=== PATIENT | male | born 1990 | race Caucasian/White ===

== ENCOUNTER 2017-06-21 22:19 | Emergency (ER) | payer SELFPAY ==
--- NOTE | 2017-06-22 01:48 | ER Document Report ---
HPI - HPI Patient complains to provider of: neck swelling Pain Level: Denies Context: Patient is a 27-year-old male comes emergency department for chief complaint of a swollen area underneath his left jaw bone, he states the area has been there for over a year, he states that it seems like it is slowly getting a little bit bigger. He denies tenderness to the area, he denies drainage, denies fever. Denies difficulty swallowing or breathing but states he is noticing it more now just in general. He states he had CAT scan performed with contrast and [place] a few months ago, states he is not sure what they told him it was but told him to follow-up with ENT. He states he thinks it is a sebaceous cyst although he is not sure if they told him that or if he googled it. He smokes, he takes Suboxone, he denies injecting anything into the area. He denies any other medical history. Past Medical History - General Information source: Patient - Social History Smoking Status: Current Every Day Smoker Smoking Education Provided: Yes - <3 min Frequency of alcohol use: None Drug Abuse: None Lives with: Alone Family History: Reviewed & Not Pertinent - Medical History Medical History: Negative Surgical Hx: Negative - Immunizations Immunizations up to date: Yes Hx Diphtheria, Pertussis, Tetanus Vaccination: Yes Vertical Provider Document - CONSTITUTIONAL General Appearance: WD/WN, No Apparent Distress - HEENT HEENT: Atraumatic, Normocephalic. negative: Normal ENT Exam - There is a large circular solid slightly mobile enlargement just under the left mandible in the mid mandibular area. Nontender, no erythema, no nearby adenopathy. Normal oral exam, normal pharyngeal exam. Patent airway. - RESPIRATORY Respiratory: Breath Sounds Normal, No Respiratory Distress O2 Sat by Pulse Oximetry: 93 - CARDIOVASCULAR Cardiovascular: Regular Rate, Regular Rhythm - GI/ABDOMEN Gastrointestinal: Abdomen Soft, Abdomen Non-Tender - MUSCULOSKELETAL/EXTREMETIES Musculoskeletal/Extremeties: CHARO HENDRICKS, Non-Tender - NEURO Level of Consciousness: Awake, Alert, Appropriate Course - Re-evaluation Re-evalutation: Patient wants me to stick a needle in the mass/cyst and withdraw fluid. I explained to him that if this was a cyst that fluid would likely return, if it is a mass he would only bleed. Area has been there for over a year. Normal airway, no difficulty swallowing, normal breath sounds, no hypoxia, no signs of distress. No signs of infection. I did perform an ultrasound at bedside, this area has a well circumscribed wall and also has what appears to be solid tissue inside without being a fluid- filled cyst. Appears to be a mass. Patient declines to get additional imaging because he has already had images and he does not want an additional bill. Explained to patient that this cannot be drained and I will not be placing a needle in it at this time because of the findings, these were shown to him at bedside on the ultrasound, patient states understanding and agreement, referred to ENT, he states that he will follow-up. Discussed return precautions, discussed with Dr. Myers, patient states understanding and agreement. - Vital Signs Vital signs: Temp Pulse Resp BP Pulse Ox 98.8 F 81 16 121/77 93 06/21/17 23:24 06/21/17 23:24 06/21/17 23:24 06/21/17 23:24 06/21/17 23:24 Discharge - Discharge Clinical Impression: Mass of neck Condition: Stable Disposition: HOME, SELF-CARE Additional Instructions: On examination this appears to be a mass. This most likely needs biopsy and removal. Follow-up with ENT for this to be performed. Return for any concerning symptoms including redness, pain to the area, fever, difficulty breathing or swallowing, or any other concerning symptoms. [facility] Address: [address] [place] [address] [address], [place] [address] Forms: Smoking Cessation Education
[2017-06-22 01:57] VITALS: BP 123/88
== END 2017-06-22 01:55 | disposition home or self-care (01) ==
LOC: ER 22:19
DX: R22.1 Localized swelling, mass and lump, neck (principal); F17.200 Nicotine dependence, unspecified, uncomplicated; Z71.6 Tobacco abuse counseling; Z79.891 Long term (current) use of opiate analgesic
CPT/HCPCS: 99282

== ENCOUNTER 2017-09-28 17:36 | Emergency (ER) | payer SELFPAY ==
[2017-09-28 17:45] VITALS: BP 129/82
[2017-09-28] MEDS ORDERED: TOBRAMYCIN SULFATE/DEXAMETH OPH SUSP 2.5 ML OD ONE (19:54)
--- NOTE | 2017-09-28 20:00 | ER Document Report ---
ED Eye Complaint - General Chief Complaint: Eye Problem Stated Complaint: LEFT EYE REDNESS, IRRITATION Time Seen by Provider: 09/28/17 19:43 Information source: Patient Notes: History of present illness-27 years old male with a history of left upper neck mass not been evaluated for several months to year, presents today with left eye conjunctival erythema, swelling. No pain, no blurring of vision. No vision loss. Conjunctiva erythema started last Monday. States he may have accidentally scratched his cornea. He works in a [employer] center. He has no insurance therefore he did not seek medical help for his neck mass. Denies any fever chills or other constitutional symptoms. Denies any difficulty in swallowing or difficulty in breathing. Denies any sore throat. REVIEW OF SYSTEMS: CONSTITUTIONAL : Denies fever, chills, or sweats. Denies recent illness. EENT: Denies eye, ear, throat, or mouth pain or symptoms. Denies nasal or sinus congestion or discharge. Denies throat, tongue, or mouth swelling or difficulty swallowing. CARDIOVASCULAR: Denies chest pain. Denies palpitations or racing or irregular heart beat. Denies ankle edema. RESPIRATORY: Denies cough, cold, or chest congestion. Denies shortness of breath, difficulty breathing, or wheezing. GASTROINTESTINAL: Denies abdominal pain or distention. Denies nausea, vomiting , or diarrhea. Denies blood in vomitus, stools, or per rectum. Denies black, tarry stools. Denies constipation. GENITOURINARY: Denies difficulty urinating, painful urination, burning, frequency, blood in urine, or discharge. MUSCULOSKELETAL: Denies back or neck pain or stiffness. Denies joint pain or swelling. SKIN: Denies rash, lesions or sores. HEMATOLOGIC : Denies easy bruising or bleeding. LYMPHATIC: Denies swollen, enlarged glands. NEUROLOGICAL: Denies confusion or altered mental status. Denies passing out or loss of consciousness. Denies dizziness or lightheadedness. Denies headache. Denies weakness or paralysis or loss of use of either side. Denies problems with gait or speech. Denies sensory loss, numbness, or tingling. Denies seizures. PSYCHIATRIC: Denies anxiety or stress. Denies depression, suicidal ideation, or homicidal ideation. ALL OTHER SYSTEMS REVIEWED AND NEGATIVE. Dictation was performed using boosk recognition software PHYSICAL EXAMINATION: GENERAL: Well-appearing, well-nourished and in no acute distress. HEAD: Atraumatic, normocephalic. EYES: eyes pupils were equal reactive to light iris appears normal on both sides, left eye subconjunctival hematoma was noted particularly in the left lower quadrant and as well as right upper quadrant. With slight purulent discharge noted. No vision loss. With the left eye closed he was able to read small letters. ENT: Nares patent, oropharynx clear without exudates. Moist mucous membranes. NECK: Normal range of motion, supple without lymphadenopathy. Left upper anterior corner of the neck just below the mandible days 3 x 2 cm spherical hard mobile nontender mass. 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 There is no erythema or discoloration of the skin noted. No other lymphadenopathy. LUNGS: Breath sounds clear to auscultation bilaterally and equal. No wheezes rales or rhonchi. HEART: Regular rate and rhythm without murmurs ABDOMEN: Soft, nontender, nondistended abdomen. No guarding, no rebound. No masses appreciated. Musculoskeletal: Normal range of motion, no pitting or edema. No cyanosis. NEUROLOGICAL: Cranial nerves grossly intact. Normal speech, normal gait. Normal sensory, motor exams PSYCH: Normal mood, normal affect. SKIN: Warm, Dry, normal turgor, no rashes or lesions noted. TRAVEL OUTSIDE OF THE [place] IN LAST 30 DAYS: No - HPI Onset: Last week Eye location: Left Occurred at: Home Quality of pain: No pain, Burning Severity: Moderate Pain Level: 3 Safety glasses worn: No Contact lenses worn: No - Related Data Allergies/Adverse Reactions: No Known Allergies Allergy (Unverified 09/28/17 20:23) Past Medical History - General Information source: Patient - Social History Smoking Status: Never Smoker Cigarette use (# per day): No Chew tobacco use (# tins/day): No Smoking Education Provided: No Frequency of alcohol use: Rare Lives with: Family Family History: Reviewed & Not Pertinent Renal/ Medical History: Denies: Hx Peritoneal Dialysis - Immunizations Immunizations up to date: Yes Hx Diphtheria, Pertussis, Tetanus Vaccination: Yes Review of Systems - Review of Systems Notes: Unremarkable Constitutional: denies: No symptoms reported, See HPI, Chills, Diaphoresis, Fever, Malaise, Weakness, Other, Weight gain, Weight loss, Recent illness EENT: See HPI Cardiovascular: denies: No symptoms reported, See HPI, Chest pain, Palpitations , Heart racing, Orthopnea, Dyspnea, Syncope, Dizziness, Lightheaded, Edema, Other, Paroxysmal Nocturnal Dysp Respiratory: denies: No symptoms reported, See HPI, Cough, Hurts to breathe, Hemoptysis, Short of breath, Sputum, Stridor, Wheezing, Other Gastrointestinal: denies: No symptoms reported, See HPI, Abdomen distended, Abdominal pain, Diarrhea, Nausea, Vomiting, Constipation, Blood streaked bowels , Poor appetite, Poor fluid intake, Blood in vomit, Black stools, Rectal bleeding, Last bowel movement, Fecal incontinence, Other Genitourinary: denies: No symptoms reported, See HPI, Burning, Dysuria, Discharge, Frequency, Flank pain, Hematuria, Incontinence, Pain, Urgency, Retention, Other Male Genitourinary: denies: No symptoms reported, See HPI, Erectile dysfunction , Testicular pain, Penile discharge, Other Musculoskeletal: denies: No symptoms reported, See HPI - Interesting, Back pain , Gout, Joint pain, Joint swelling, Muscle pain, Muscle stiffness, Neck pain, Deformity, Leg swelling, Ankle swelling, Other Skin: denies: No symptoms reported, See HPI, Change in color, Change in hair/ nails, Dryness, Lesions, Lumps, Rash, Other Hematologic/Lymphatic: denies: No symptoms reported, See HPI, Anemia, Blood clots, Easy bleeding, Easy bruising, Enlarged lymph nodes, Swollen glands, Other Neurological/Psychological: denies: No symptoms reported, See HPI, Confusion, Dementia, Depression, Hallucinations, Anxiety, Homicidal ideation, Sensory change, Weakness, Gait changes, Loss of power, Paralysis, Seizure, Lost consciousness, Headaches, Speech impairment, Numbness, Suicidal ideation, Tingling, Tremor, Other Physical Exam - Vital signs Vitals: Temp Pulse Resp BP Pulse Ox 98.2 F 107 H 16 129/82 H 96 09/28/17 17:41 09/28/17 17:41 09/28/17 17:41 09/28/17 17:41 09/28/17 17:41 Course - Vital Signs Vital signs: Temp Pulse Resp BP Pulse Ox 98.2 F 107 H 16 129/82 H 96 09/28/17 17:41 09/28/17 17:41 09/28/17 17:41 09/28/17 17:41 09/28/17 17:41 - Laboratory Result Diagrams: 09/28/17 20:00 Laboratory results interpreted by me: 09/28/17 20:00 WBC 13.5 H RDW 14.1 H Seg Neutrophils % 86.5 H Lymphocytes % 6.6 L Absolute Neutrophils 11.6 H - Diagnostic Test Radiology reviewed: Reports reviewed - 1. CT of the head reported by radiologist as normal 2. CT of the neck soft tissue reported by radiologist as the left submandibular mass. Cystic or mucinous mass. Not extending beyond the borders. No lymphadenopathy. Most likely benign Discharge - Discharge Clinical Impression: Subconjunctival hemorrhage of left eye, Mass of left submandibular region Condition: Fair Disposition: HOME, SELF-CARE Instructions: Conjunctivitis ([facility]), Eyedrop Use ([facility]), Growth or Mass, Pending Workup ([facility]) Prescriptions: Tobramycin Sulfate [Tobrex 0.3% Oph Soln 5 Ml] 1 drop BTH_EYE QID 7 Days #1 bottle
[2017-09-28 20:14] LABS: ABSOLUTE EOSINOPHILS # (AUTO) 0.1 10^3/uL (0.0-0.6); ABSOLUTE LYMPHOCYTES (AUTO) 0.9 10^3/uL (0.5-4.7); ABSOLUTE MONOCYTES (AUTO) 0.9 10^3/uL (0.1-1.4); ABSOLUTE NEUT (AUTO) 11.6 10^3/uL (1.7-8.2); EOSINOPHILS % (AUTO) 0.5 % (0-6); HEMATOCRIT 44.8 % (37.9-51.0); HEMOGLOBIN 15.1 g/dL (13.5-17.0); LYMPHOCYTES % (AUTO) 6.6 % (13-45); MEAN CORPUSCULAR HEMOGLOBIN 31.2 pg (27.0-33.4); MEAN CORPUSCULAR HGB CONC 33.8 g/dL (32.0-36.0); MEAN CORPUSCULAR VOLUME 92 fl (80-97); MONOCYTES % (AUTO) 6.4 % (3-13); PLATELET COUNT 243 10^3/uL (150-450); RED BLOOD COUNT 4.85 10^6/uL (4.35-5.55); RED CELL DISTRIBUTION WIDTH 14.1 % (11.5-14.0); SEGMENTED NEUTROPHILS % (AUTO) 86.5 % (42-78); TOTAL CELLS COUNTED % (AUTO) 100 %; WHITE BLOOD COUNT 13.5 10^3/uL (4.0-10.5)
--- NOTE | 2017-09-28 21:04 | RADIOLOGY REPORT (SQ) ---
EXAM DESCRIPTION: CT HEAD WITHOUT COMPLETED DATE/TIME: 09/28/2017 8:44 pm REASON FOR STUDY: Neck mass COMPARISON: None. TECHNIQUE: Axial images acquired through the brain without intravenous contrast. Images reviewed wi th bone, brain and subdural windows. Additional sagittal and coronal reconstructions were generated. Images stored on PACS. All CT scanners at this facility use dose modulation, iterative reconstruction, and/or weight based d osing when appropriate to reduce radiation dose to as low as reasonably achievable (ALARA). [facility]: Dose Right [facility]: CareDose [facility]: Dose Right [facility]: Teradose 4D [facility]: [employer] RADIATION DOSE: CT Rad equipment meets quality standard of care and radiation dose reduction techniq ues were employed. CTDIvol: 53.2 mGy. DLP: 991 mGy-cm. mGy. LIMITATIONS: None. FINDINGS: VENTRICLES: Normal size and contour. CEREBRUM: No masses. No hemorrhage. No midline shift. No evidence for acute infarction. Normal gra y/white matter differentiation. No areas of low density in the white matter. CEREBELLUM: No masses. No hemorrhage. No alteration of density. No evidence for acute infarction. EXTRAAXIAL SPACES: No fluid collections. No masses. ORBITS AND GLOBE: No intra- or extraconal masses. Normal contour of globe without masses. CALVARIUM: No fracture. PARANASAL SINUSES: No fluid or mucosal thickening. SOFT TISSUES: No mass or hematoma. OTHER: No other significant finding. IMPRESSION: NORMAL BRAIN CT WITHOUT CONTRAST. EVIDENCE OF ACUTE STROKE: NO. COMMENT: Quality ID # [id number]: Final reports with documentation of one or more dose reduction techniques (e.g., Automated exposure control, adjustment of the mA and/or kV according to patient size, use of iterative reconstruction technique) TECHNICAL DOCUMENTATION: JOB ID: [id number] [employer]- All Rights Reserved Reading location - IP/workstation name: [email or web address]
--- NOTE | 2017-09-28 21:17 | RADIOLOGY REPORT (SQ) ---
EXAM DESCRIPTION: CT SOFT TISSUE NECK WITH COMPLETED DATE/TIME: 09/28/2017 8:44 pm REASON FOR STUDY: Left neck mass COMPARISON: None. TECHNIQUE: Post IV contrasted scanning from skull base through lung apices with review of bone, soft tissue and lung windows. Reconstructed coronal and sagittal MPR images reviewed. All images stored on PACS. All CT scanners at this facility use dose modulation, iterative reconstruction, and/or weight based d osing when appropriate to reduce radiation dose to as low as reasonably achievable (ALARA). [facility]: Dose Right [facility]: CareDose [facility]: Dose Right [facility]: Teradose 4D [facility]: [employer] CONTRAST TYPE AND DOSE: contrast/concentration: Isovue 370.00 mg/ml; Total Contrast Delivered: 75.0 ml; Total Saline Delivered: 55.0 ml RENAL FUNCTION: None required. The patient is less than 50 years old. RADIATION DOSE: CT Rad equipment meets quality standard of care and radiation dose reduction techniq ues were employed. CTDIvol: 13.0 mGy. DLP: 504 mGy-cm. . LIMITATIONS: None. FINDINGS: SKULL BASE: Intact. MAJOR SALIVARY GLANDS: Parotid glands look symmetric bilaterally, without gross mass or stones or reg ional inflammatory change. There is a 3.6 x 2.8 cm circumscribed low density mass which appears to i nvolve the inferior aspect of the left submandibular gland. This measures 3.4 cm craniocaudal. Prob ably largely cystic although there is some nodular more solid tissue both superiorly and inferiorly. Right submandibular gland normal. No associated inflammatory changes. Shotty lymph nodes in the ne ck, symmetric bilateral. LYMPHADENOPATHY: As above. MUCOSAL MASSES OR ASYMMETRY: No mucosal masses or asymmetry. LARYNX/CORDS: No abnormal findings. VASCULAR STRUCTURES: The major vessels are patent. LUNG APICES: Clear. BONES: Intact. THYROID: Normal size. No masses. PARANASAL SINUSES: Clear. OTHER: No airway compromise. IMPRESSION: 1. Left neck mass appears to arise from the left submandibular gland, predominantly low density cystic or mucinous lesion. Broad differential includes benign and lymphoepithelial cysts, W arthin's tumor, cystic adenoma among others. The lesion does not appear to be of inflammatory/infect ious etiology. There is no extension beyond the submandibular region. No other masses are identifie d. ENT referral for consideration of diagnostic FNA recommended. TECHNICAL DOCUMENTATION: JOB ID: [id number] Quality ID # [id number]: Final reports with documentation of one or more dose reduction techniques (e.g., Au tomated exposure control, adjustment of the mA and/or kV according to patient size, use of iterative reconstruction technique) 2010 [employer]- All Rights Reserved Reading location - IP/workstation name: [email or web address]
== END 2017-09-28 23:12 | disposition home or self-care (01) ==
LOC: ER 17:36
DX: H11.32 Conjunctival hemorrhage, left eye (principal); R22.1 Localized swelling, mass and lump, neck
CPT/HCPCS: 99284; 36415; 85025; 70450; 70491; J3490